=== PATIENT | female | born 1985 ===

== ENCOUNTER → 2016-06-27 | Outpatient (CLI) | payer OTHER ==
--- NOTE | 2016-06-27 18:55 | XCELERA REPORT ---
[address] [address] Transthoracic Echocardiogram Report Name: LORNA SONI Age: 31 yrs Gender: Female : 1985 Patient Status: Outpatient Patient Location: Study Date: 06/27/2016 11:34 AM Height: 66 in Weight: 135 lb BSA: 1.7 m2 Reason For Study: PALPATATIONS Ordering Physician: PRIYA CARTY Performed By: Juani Andrew Interpretation Summary Normal AV . Normal MV with no MS and no MVP and trace MR, no LA enlargement. No ASD LV no hypertrophy, Normal LVEF 60% with incomplete LV segmental analysis.no LV enlargement, no LV diastolic dysfunction. RH normal size, mild TR no pulm hypertension. RVSP 17. MMode/2D Measurements \T\ Calculations RVDd: 2.0 cm LVIDd: 4.9 cm FS: 46.3 % Ao root diam: 2.8 cm IVSd: 0.70 cm LVIDs: 2.6 cm EDV(Teich): 110.5 ml LVPWd: 0.86 cm ESV(Teich): 24.8 ml Ao root area: 6.0 cm2 EF(Teich): 77.5 % LA dimension: 3.3 cm Doppler Measurements \T\ Calculations MV E max analia: MV P1/2t max analia: Ao V2 max: LV V1 max P.2 cm/sec 67.5 cm/sec 112.8 cm/sec 3.4 mmHg MV A max analia: MV P1/2t: 64924 msec Ao max PG: LV V1 max: 28.1 cm/sec 5.1 mmHg 91.5 cm/sec MV E/A: 2.4 MVA(P1/2t): 0.02 cm2 MV dec slope: 1.5 cm/sec2 PA V2 max: TR max analia: 71.1 cm/sec 202.2 cm/sec PA max PG: TR max P.4 mmHg 2.0 mmHg Left Ventricle The left ventricle is normal in size. The left ventricular ejection fraction is normal. LV EF is 60%. Doppler measurements suggest normal left ventricular diastolic function. There is anteroseptal wall mild hypokinesis. There is no thrombus. Right Ventricle The right ventricle is normal in size, thickness and function. The right ventricular systolic function is normal. Atria The right atrium is normal. The left atrial size is normal. The interatrial septum is intact with no evidence for an atrial septal defect. Mitral Valve The mitral valve is grossly normal. There is no mitral annular calcification. There is no evidence of mitral valve prolapse. There is no vegetation seen on the mitral valve. There is no mitral valve stenosis. There is a trace to mild amount of mitral regurgitation. Aortic Valve The aortic valve is normal in structure and functions normally. The aortic valve is trileaflet. The aortic valve opens well. There is no aortic valvular vegetation. There is no aortic valve stenosis. No aortic regurgitation is present. Tricuspid Valve The tricuspid valve is not well visualized, but is grossly normal. There is no tricuspid valve prolapse. There is no tricuspid stenosis. There is a mild amount of tricuspid regurgitation. Right ventricular systolic pressure is normal. Pulmonic Valve The pulmonic valve is not well visualized. There is a trace or physiologic amount of pulmonic regurgitation. Great Vessels The aortic root is normal size. I WMSI = 1.07 % Normal = 93 Segments Size X - Cannot 2 - 4 - 1-2 small Interpret 1 - Normal Hypokinetic 3 - AkineticDyskinetic 3-5 moderate 5 - 6-14 large Aneurysmal 15-16 diffuse : PRIYA CARTY > Priya Carty
== END ==
LOC: SP 11:03
PROVIDERS: ATTEND Internal Medicine Cardiovascular Disease
DX: R00.2 Palpitations (principal)
CPT/HCPCS: 93306

== ENCOUNTER → 2016-06-28 | Outpatient (CLI) | payer OTHER ==
[2016-06-28 08:31] LABS: ALANINE AMINOTRANSFERASE 35 U/L (9-52); ALBUMIN 4.2 g/dL (3.5-5.0); ALKALINE PHOSPHATASE 43 U/L (38-126); ANION GAP 9 (5-19); ASPARTATE AMINO TRANSFERASE 31 U/L (14-36); BILIRUBIN,TOTAL 0.9 mg/dL (0.2-1.3); BLOOD UREA NITROGEN 11 mg/dL (7-20); CALCIUM 9.3 mg/dL (8.4-10.2); CARBON DIOXIDE 27 mmol/L (22-30); CHLORIDE 105 mmol/L (98-107); CREATININE RESULT 0.88 mg/dL (0.52-1.25); Direct HDL 60 mg/dL (>40); GLUCOSE 84 mg/dL (75-110); MAGNESIUM 1.7 mg/dL (1.6-2.3); POTASSIUM 4.1 mmol/L (3.6-5.0); SODIUM 140.5 mmol/L (137-145); TOTAL PROTEIN 6.9 g/dL (6.3-8.2); TRIGLYCERIDES 74 mg/dL (<150)
[2016-06-28 08:32] LABS: HEMATOCRIT 41.4 % (36.0-47.0); HEMOGLOBIN 13.9 g/dL (12.0-15.5); HGB HCT DIFFERENCE 0.3; MEAN CORPUSCULAR HEMOGLOBIN 28.4 pg (27.0-33.4); MEAN CORPUSCULAR HGB CONC 33.6 g/dL (32.0-36.0); MEAN CORPUSCULAR VOLUME 85 fl (80-97); RED BLOOD COUNT 4.89 10^6/uL (3.72-5.28); WHITE BLOOD COUNT 4.8 10^3/uL (4.0-10.5)
[2016-06-28 08:42] LABS: DIRECT LDL 77 mg/dL (<100)
== END ==
LOC: OD 07:20
PROVIDERS: ATTEND Internal Medicine Cardiovascular Disease
DX: R00.2 Palpitations (principal); Z79.899 Other long term (current) drug therapy
CPT/HCPCS: 36415; 80048; 80061; 80076; 83735; 84443; 85027